=== PATIENT | female | born 1990 ===

== ENCOUNTER 2016-12-31 19:41 | Emergency (ER) | payer SELFPAY ==
[2016-12-31 19:53] VITALS: BP 140/79; PULSE 81; RESP 20; TEMP 98.5; O2SAT 99
--- NOTE | 2016-12-31 20:00 | ED PDOC ---
Upper Extremity Pain/Injury Time Seen by Provider: 12/31/16 19:51 Chief Complaint (Nursing): Upper Extremity Problem/Injury Chief Complaint (Provider): Left Shoulder Pain History Per: Patient History/Exam Limitations: no limitations Onset/Duration Of Symptoms: Days (x2 weeks) Current Symptoms Are (Timing): Still Present Quality: "Pain" Additional Complaint(s): Kaci Vallejo, a 26 year old right hand dominant female, presents to the ED complaining of left shoulder pain x 2 weeks with no history of trauma or injury. The patient states that the pain starts in the back of the left shoulder and wraps around to the front of the arm. She reports that she has been taking tylenol which offers no relief. Denies trauma, fall, dyspnea on exertion, shortness of breath, chest pain. Patient states that pain is worse with movement and better with rest. Past Medical History Reviewed: Historical Data, Nursing Documentation, Vital Signs Vital Signs: Last Vital Signs Temp 98.5 F 12/31/16 19:51 Pulse 81 12/31/16 19:51 Resp 20 12/31/16 19:51 BP 140/79 12/31/16 19:51 Pulse Ox 99 12/31/16 19:51 - Medical History PMH: No Chronic Diseases - Surgical History Surgical History: No Surg Hx - Family History Family History: States: No Known Family Hx - Living Arrangements Living Arrangements: With Family - Social History Current smoker - smoking cessation education provided: No Alcohol: None Drugs: Denies - Home Medications Home Medications: Ambulatory Orders Medication Instructions Recorded Ibuprofen [Motrin Tab] 600 mg PO Q6 PRN #15 tab 05/03/16 Cyclobenzaprine [Cyclobenzaprine 10 mg PO TID PRN #15 tab 12/31/16 HCl] Naproxen [Naprosyn] 500 mg PO BID #20 tab 12/31/16 - Allergies Allergies/Adverse Reactions: Allergies Allergy/AdvReac Type Severity Reaction Status Date / Time No Known Allergies Allergy Verified 05/03/16 07:36 Review of Systems ROS Statement: Except As Marked, All Systems Reviewed And Found Negative Cardiovascular: Negative for: Chest Pain Respiratory: Negative for: Shortness of Breath, SOB with Exertion Musculoskeletal: Positive for: Shoulder Pain (Left Shoulder Pain x 2 weeks, denies trauma or injury) Physical Exam - Reviewed Nursing Documentation Reviewed: Yes Vital Signs Reviewed: Yes - Physical Exam Appears: Positive for: Non-toxic, No Acute Distress Head Exam: Positive for: ATRAUMATIC, NORMAL INSPECTION, NORMOCEPHALIC Skin: Positive for: Normal Color. 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 Negative for: Deformity, Swelling Neurologic/Psych: Positive for: Alert, Oriented, Gait - Laboratory Results Urine POC: Negative - ECG O2 Sat by Pulse Oximetry: 99 (RA) Pulse Ox Interpretation: Normal - Other Rad Left shoulder x-ray X-Ray: Interpreted by Me, Viewed By Me X-Ray Interpretation: no fx, no dis Medical Decision Making Medical Decision Makin Initial Impression: 26 year old female presenting with left shoulder pain Initial Plan: * Upreg * Flexeril 10mg PO * Motrin Tab 600mg * X-ray left Shoulder Patient feels better after meds were given. Sling was applied to left arm. Prescriptions given for Naprosyn and Flexeril. Patient was instructed to follow up with clinic in 2-3 days. Scribe Attestation Documented by Jennie Silveira acting as a scribe for Karen Treviño PA-C. Scribe Attestation All medical record entries made by the Scribe were at my direction and personally dictated by me. I have reviewed the chart and agree that the record accurately reflects my personal performance of the history, physical exam, medical decision making, and the department course for this patient. I have also personally directed, reviewed, and agree with the discharge instructions and disposition. Procedures - Splinting Location: left arm Pre-Made Type: sling Pre-Proc Neuro Vasc Exam: normal Post-Proc Neuro Vasc Exam: normal Disposition - Clinical Impression Clinical Impression: Shoulder sprain - Patient ED Disposition Is Patient to be Admitted: No Counseled Patient/Family Regarding: Studies Performed, Diagnosis, Need For Followup, Rx Given - Disposition Referrals: [facility] [Outside] Disposition: Routine/Home Disposition Time: 21:06 Condition: STABLE Additional Instructions: Ice and rest affected area. Take rx meds as directed as needed for pain. Follow up with clinic in 2-3 days. Prescriptions: Cyclobenzaprine [Cyclobenzaprine HCl] 10 mg PO TID PRN #15 tab PRN Reason: Muscle Pain Naproxen [Naprosyn] 500 mg PO BID #20 tab Instructions: Shoulder Sprain (ED) Forms: [employer] (German) Print Language: LATVIAN
--- NOTE | 2017-01-01 10:05 | RAD ---
PROCEDURE: Radiographs of the Left Shoulder HISTORY: pain COMPARISON: No prior. FINDINGS: BONES: Bone alignment and mineralization are normal. There is no acute displaced fracture or bone destruction. JOINTS: Normal. Glenohumeral and acromioclavicular joints preserved. SOFT TISSUES: Normal. OTHER FINDINGS: There is a small calcified granuloma in the left upper lobe. IMPRESSION: No acute fracture or dislocation.
== END 2016-12-31 21:11 | disposition home or self-care (01) ==
LOC: H.ER 19:41
DX: M25.512 Pain in left shoulder (principal)